=== PATIENT | male | born 1955 | race Caucasian/White ===

== ENCOUNTER 2019-12-15 16:09 | Inpatient (IN) ==
[2019-12-15] MEDS ORDERED: D5% in Water 1,000 ML IVC PRN (17:50)
[2019-12-15] MEDS ORDERED: *HR* Dextrose 50 % in Water (Vial) 50 ML VIAL IVP PRN (17:50)
[2019-12-15] MEDS ORDERED: Dextrose Gel 15 GM/37.5 ML TUBE PO PRN ×2 (17:50)
[2019-12-15 18:12] LABS: Hematocrit 28.3 % (37.5-50.1); Hemoglobin 8.7 g/dL (12.9-16.9); Mean Corpuscular HGB Conc 30.7 g/dL (31.6-35.5); Mean Corpuscular Hemoglobin 27.3 pg (28.0-33.3); Mean Corpuscular Volume 88.7 fL (83.0-100.0); Mean Platelet Volume 10.2 fL (9.4-12.4); Platelet Count 238 K/mcL (140-400); Red Blood Count 3.19 M/mcL (4.19-5.50); Red Cell Distribution Width 20.9 % (11.5-14.5)
[2019-12-15 18:29] LABS: Alanine Aminotransferase 17 Units/L (7-52); Albumin 2.5 g/dL (3.5-5.7); Albumin/Globulin Ratio 0.7 (1.1-2.2); Alkaline Phosphatase 76 Units/L (34-104); Aspartate Amino Transferase 21 Units/L (13-39); BUN/Creatinine Ratio 10 (6-26); Bilirubin,Total 0.6 mg/dL (0.3-1.0); Blood Urea Nitrogen 9 mg/dL (8-23); Calcium 8.2 mg/dL (8.6-10.3); Carbon Dioxide 28 mEq/L (23-29); Chloride 103 mEq/L (98-107); Globulin 3.7 g/dL (2.4-3.5); Glucose 165 mg/dL (70-105); Magnesium 1.8 mg/dL (1.6-2.6); Osmolality,Calculated 286 (280-300); Potassium 4.2 mEq/L (3.5-5.1); Sodium 137 mEq/L (136-145); Total Protein 6.2 g/dL (6.4-8.9); eGFR For African Americans > 60 (> 60); eGFR For Non-African Americans > 60 (> 60)
[2019-12-15] MEDS: Insulin LISPRO 300 UNITS/3 ML VIAL SQ SCH ×3 (18:37→20:28)
[2019-12-15] MEDS ORDERED: *HR* OxyCODONE Immed Rel 5 MG TABLET PO ONE (19:06)
[2019-12-15] MEDS: Lactulose Oral Soln 20 GM/30 ML UDC PO SCH (19:49)
[2019-12-15] MEDS: Insulin DETEMIR 100 UNIT/ML X5UNITS SQ SCH (20:29)
[2019-12-15] MEDS: Budesonide/Formoterol 160/4.5 1 PUFF INH IH SCH (21:16)
[2019-12-15 22:59] LABS: Estimated Average Glucose 160 mg/dl
[2019-12-16 06:58] LABS: Alanine Aminotransferase 17 Units/L (7-52); Albumin 2.5 g/dL (3.5-5.7); Albumin/Globulin Ratio 0.6 (1.1-2.2); Alkaline Phosphatase 77 Units/L (34-104); Aspartate Amino Transferase 21 Units/L (13-39); BUN/Creatinine Ratio 9 (6-26); Bilirubin,Total 0.8 mg/dL (0.3-1.0); Blood Urea Nitrogen 8 mg/dL (8-23); Calcium 8.1 mg/dL (8.6-10.3); Carbon Dioxide 27 mEq/L (23-29); Chloride 104 mEq/L (98-107); Globulin 3.9 g/dL (2.4-3.5); Glucose 121 mg/dL (70-105); Osmolality,Calculated 284 (280-300); Potassium 3.9 mEq/L (3.5-5.1); Sodium 137 mEq/L (136-145); Total Protein 6.4 g/dL (6.4-8.9); eGFR For African Americans > 60 (> 60); eGFR For Non-African Americans > 60 (> 60)
[2019-12-16] MEDS: Insulin LISPRO 300 UNITS/3 ML VIAL SQ SCH ×5 (08:47→22:07)
[2019-12-16] MEDS: lamoTRIgine 100 MG TABLET PO SCH (08:48)
[2019-12-16] MEDS: Lisinopril 20 MG TABLET PO SCH (08:48)
[2019-12-16] MEDS: Insulin DETEMIR 100 UNIT/ML X5UNITS SQ SCH ×2 (08:48→22:05)
[2019-12-16] MEDS: Cholecalciferol (D-3) 1,000 UNIT (25MCG) TABLET PO SCH (08:49)
[2019-12-16] MEDS: Lactulose Oral Soln 20 GM/30 ML UDC PO SCH ×3 (08:49→22:15)
[2019-12-16] MEDS ORDERED: Furosemide 40 MG TABLET PO SCH (09:00)
[2019-12-16] MEDS: Budesonide/Formoterol 160/4.5 1 PUFF INH IH SCH ×2 (09:20→21:02)
[2019-12-16] MEDS: *HR* OxyCODONE Immed Rel 5 MG TABLET PO PRN (15:14)
[2019-12-16] MEDS: Furosemide 40 MG TABLET PO SCH (17:05)
[2019-12-17] MEDS: Insulin LISPRO 300 UNITS/3 ML VIAL SQ SCH ×4 (09:09→21:16)
[2019-12-17] MEDS: Lisinopril 20 MG TABLET PO SCH (09:27)
[2019-12-17] MEDS: *HR* OxyCODONE Immed Rel 5 MG TABLET PO PRN ×2 (09:28→21:15)
[2019-12-17] MEDS: Cholecalciferol (D-3) 1,000 UNIT (25MCG) TABLET PO SCH (09:28)
[2019-12-17] MEDS: Furosemide 40 MG TABLET PO SCH ×2 (09:28→16:47)
[2019-12-17] MEDS: lamoTRIgine 100 MG TABLET PO SCH (09:28)
[2019-12-17] MEDS: Insulin DETEMIR 100 UNIT/ML X5UNITS SQ SCH ×2 (09:29→21:17)
[2019-12-17] MEDS: Lactulose Oral Soln 20 GM/30 ML UDC PO SCH ×3 (09:35→21:16)
[2019-12-17] MEDS: Budesonide/Formoterol 160/4.5 1 PUFF INH IH SCH ×2 (10:27→22:08)
[2019-12-18] MEDS: Insulin LISPRO 300 UNITS/3 ML VIAL SQ SCH ×4 (08:20→22:39)
[2019-12-18] MEDS: Lactulose Oral Soln 20 GM/30 ML UDC PO SCH ×3 (08:21→22:39)
[2019-12-18] MEDS: Cholecalciferol (D-3) 1,000 UNIT (25MCG) TABLET PO SCH (08:21)
[2019-12-18] MEDS: *HR* OxyCODONE Immed Rel 5 MG TABLET PO PRN ×2 (08:21→22:36)
[2019-12-18] MEDS: lamoTRIgine 100 MG TABLET PO SCH (08:23)
[2019-12-18] MEDS: Lisinopril 20 MG TABLET PO SCH (08:23)
[2019-12-18] MEDS: Furosemide 40 MG TABLET PO SCH ×2 (08:23→17:27)
[2019-12-18 08:26] LABS: Basophils % 0.3 %; Eosinophils # 0.2 K/mcL (0.0-0.6); Eosinophils % 1.7 %; Hematocrit 28.8 % (37.5-50.1); Immature Granulocytes % 0.8 % (0-4); Mean Corpuscular HGB Conc 31.3 g/dL (31.6-35.5); Mean Corpuscular Hemoglobin 27.9 pg (28.0-33.3); Mean Corpuscular Volume 89.2 fL (83.0-100.0); Monocytes # 1.3 K/mcL (0.0-1.3); Monocytes % 11.4 %; Platelet Count 257 K/mcL (140-400); Red Blood Count 3.23 M/mcL (4.19-5.50); Red Cell Distribution Width 21.2 % (11.5-14.5); Segmented Neutrophils % 68.8 %; White Blood Count 11.7 K/mcL (4.3-11.1)
[2019-12-18 08:30] LABS: Neutrophils # 8.1 K/mcL (1.6-8.9)
[2019-12-18 08:45] LABS: BUN/Creatinine Ratio 8 (6-26); Blood Urea Nitrogen 8 mg/dL (8-23); Calcium 8.2 mg/dL (8.6-10.3); Carbon Dioxide 30 mEq/L (23-29); Chloride 100 mEq/L (98-107); Glucose 151 mg/dL (70-105); Osmolality,Calculated 281 (280-300); Potassium 4.1 mEq/L (3.5-5.1); Sodium 135 mEq/L (136-145); eGFR For African Americans > 60 (> 60); eGFR For Non-African Americans > 60 (> 60)
[2019-12-18] MEDS: Insulin DETEMIR 100 UNIT/ML X5UNITS SQ SCH ×2 (08:50→22:37)
[2019-12-18] MEDS: Budesonide/Formoterol 160/4.5 1 PUFF INH IH SCH ×2 (10:15→22:25)
[2019-12-18] MEDS ORDERED: Ipratropium/Albuterol Neb 3 ML IH PRN (17:36)
[2019-12-18] MEDS ORDERED: Ipratropium/Albuterol Neb 3 ML IH ONE (17:36)
[2019-12-18 17:59] LABS: ABG Base Excess 3 mEq/L (-2 to 3); ABG HCO3 28 mEq/L (21-27); ABG Oxygen Saturation 95 % (95-98); ABG PCO2 46 mmHg (35-45); ABG PO2 76 mmHg (85-104); ABG TCO2 30 mEq/L (20-26)
[2019-12-18] MEDS ORDERED: 0.9 % Sodium Chloride 1,000 ML IV ONE (21:36)
[2019-12-18] MEDS: Doxycycline 100 MG CAPSULE PO SCH (22:36)
[2019-12-19] MEDS ORDERED: *HR* Enoxaparin 40 MG/0.4 ML SYRINGE SQ SCH (06:00)
[2019-12-19] MEDS ORDERED: 0.9 % Sodium Chloride 1,000 ML IV ONE (07:22)
[2019-12-19 07:47] LABS: Basophils % 0.3 %; Eosinophils # 0.2 K/mcL (0.0-0.6); Eosinophils % 1.4 %; Hemoglobin 8.7 g/dL (12.9-16.9); Immature Granulocytes % 0.5 % (0-4); Lymphocytes # 2.3 K/mcL (0.6-4.6); Lymphocytes % 19.4 %; Mean Corpuscular HGB Conc 31.1 g/dL (31.6-35.5); Mean Corpuscular Hemoglobin 27.9 pg (28.0-33.3); Mean Corpuscular Volume 89.7 fL (83.0-100.0); Mean Platelet Volume 10.1 fL (9.4-12.4); Monocytes # 1.4 K/mcL (0.0-1.3); Monocytes % 11.5 %; Platelet Count 244 K/mcL (140-400); Red Blood Count 3.12 M/mcL (4.19-5.50); Red Cell Distribution Width 21.2 % (11.5-14.5); Segmented Neutrophils % 66.9 %
[2019-12-19] MEDS ORDERED: ceFAZolin 2,000 MG in 0.9 % Sodium Chloride 100 ML IVPB SCH ×2 (08:00→09:00)
[2019-12-19 08:01] VITALS: BP 100/75
[2019-12-19 08:02] LABS: BUN/Creatinine Ratio 10 (6-26); Blood Urea Nitrogen 11 mg/dL (8-23); Calcium 8.2 mg/dL (8.6-10.3); Carbon Dioxide 30 mEq/L (23-29); Chloride 100 mEq/L (98-107); Glucose 138 mg/dL (70-105); Osmolality,Calculated 282 (280-300); Potassium 4.1 mEq/L (3.5-5.1); Sodium 135 mEq/L (136-145); eGFR For African Americans > 60 (> 60); eGFR For Non-African Americans > 60 (> 60)
[2019-12-19] MEDS: Insulin LISPRO 300 UNITS/3 ML VIAL SQ SCH ×3 (09:07→16:49)
[2019-12-19] MEDS: Insulin DETEMIR 100 UNIT/ML X5UNITS SQ SCH (09:08)
[2019-12-19] MEDS: Lactulose Oral Soln 20 GM/30 ML UDC PO SCH ×2 (09:08→13:57)
[2019-12-19] MEDS: Lisinopril 20 MG TABLET PO SCH (09:09)
[2019-12-19] MEDS: lamoTRIgine 100 MG TABLET PO SCH (09:09)
[2019-12-19] MEDS: Doxycycline 100 MG CAPSULE PO SCH (09:09)
[2019-12-19] MEDS: Furosemide 40 MG TABLET PO SCH ×2 (09:09→16:49)
[2019-12-19] MEDS: Cholecalciferol (D-3) 1,000 UNIT (25MCG) TABLET PO SCH (09:09)
[2019-12-19] MEDS ORDERED: Morphine Sulfate 2 MG/ML SYRINGE IVP PRN (09:47)
[2019-12-19] MEDS: Budesonide/Formoterol 160/4.5 1 PUFF INH IH SCH (10:55)
[2019-12-19] MEDS ORDERED: Piperacillin/Tazobactam 3.375 GM in 0.9 % Sodium Chloride Mini Bag 100 ML IVPB SCH ×2 (11:00→13:00)
[2019-12-19] MEDS: *HR* OxyCODONE Immed Rel 5 MG TABLET PO PRN (17:27)
[2019-12-20 09:16] LABS: Acinetobacter baumannii by PCR Not Detected (Not Detect); Candida albicans by PCR Not Detected (Not Detect); Candida glabrata by PCR Not Detected (Not Detect); Candida krusei by PCR Not Detected (Not Detect); Candida parapsilosis by PCR Not Detected (Not Detect); Candida tropicalis by PCR Not Detected (Not Detect); Enterobacter cloacae Cmplx PCR Not Detected (Not Detect); Enterobacteriaceae by PCR Not Detected (Not Detect); Enterococcus by PCR Not Detected (Not Detect); Escherichia coli by PCR Not Detected (Not Detect); Klebsiella oxytoca by PCR Not Detected (Not Detect); Klebsiella pneumoniae by PCR Not Detected (Not Detect); Proteus by PCR Not Detected (Not Detect); Pseudomonas aeruginosa by PCR Not Detected (Not Detect); Serratia marcescens by PCR Not Detected (Not Detect); Staphylococcus aureus by PCR DETECTED (Not Detect); Streptococcus agalactiae(B)PCR Not Detected (Not Detect); Streptococcus by PCR Not Detected (Not Detect); Streptococcus pneumoniae PCR Not Detected (Not Detect); Streptococcus pyogenes (A) PCR Not Detected (Not Detect); blaKPC Carbapenem-Resist Gene Not Detected (Not Detect); mecA Methicillin-Resist Gene Not Detected (Not Detect); vanA/B Vancomycin-Resist Genes Not Detected (Not Detect)
== END 2019-12-19 18:11 | disposition short-term general hospital (02) | DRG 549 ==
LOC: INPPIK 17:42
PROVIDERS: ADMIT Family Medicine; ATTEND Family Medicine

== ENCOUNTER 2019-12-24 13:59 | Inpatient (IN) ==
[2019-12-24] MEDS ORDERED: NON-FORMULARY MEDICATION 1 EACH EACH (Cefazolin Sodium In 0.9 % Nacl [Cefazolin 2 G/100 Ml IV SCH (14:15)
[2019-12-24] MEDS ORDERED: D5% in Water 1,000 ML IVC PRN (14:20)
[2019-12-24] MEDS ORDERED: Dextrose Gel 15 GM/37.5 ML TUBE PO PRN ×2 (14:20)
[2019-12-24] MEDS ORDERED: *HR* Dextrose 50 % in Water (Vial) 50 ML VIAL IVP PRN (14:20)
[2019-12-24] MEDS: Ascorbic Acid 500 MG TABLET PO SCH (16:39)
[2019-12-24] MEDS: Furosemide 40 MG TABLET PO SCH (16:40)
[2019-12-24] MEDS: ceFAZolin 2,000 MG in 0.9 % Sodium Chloride 100 ML IVPB SCH ×2 (16:40→23:48)
[2019-12-24] MEDS: Lactulose Oral Soln 20 GM/30 ML UDC PO SCH ×2 (16:40→19:54)
[2019-12-24] MEDS: Insulin LISPRO 300 UNITS/3 ML VIAL SQ SCH ×2 (16:41→19:55)
[2019-12-24] MEDS: Insulin DETEMIR 100 UNIT/ML X5UNITS SQ SCH (19:55)
[2019-12-24] MEDS: *HR* OxyCODONE Immed Rel 5 MG TABLET PO PRN (20:11)
[2019-12-24] MEDS: Budesonide/Formoterol 160/4.5 1 PUFF INH IH SCH (22:56)
[2019-12-24] MEDS: Famotidine 20 MG TABLET PO SCH (23:20)
[2019-12-25 07:23] LABS: Basophils % 0.1 %; Eosinophils # 0.2 K/mcL (0.0-0.6); Eosinophils % 2.3 %; Hematocrit 23.8 % (37.5-50.1); Hemoglobin 7.5 g/dL (12.9-16.9); Immature Granulocytes % 0.7 % (0-4); Lymphocytes # 2.8 K/mcL (0.6-4.6); Lymphocytes % 33.7 %; Mean Corpuscular HGB Conc 31.5 g/dL (31.6-35.5); Mean Corpuscular Hemoglobin 29.2 pg (28.0-33.3); Mean Corpuscular Volume 92.6 fL (83.0-100.0); Mean Platelet Volume 11.8 fL (9.4-12.4); Monocytes % 12.4 %; Neutrophils # 4.3 K/mcL (1.6-8.9); Platelet Count 151 K/mcL (140-400); Red Blood Count 2.57 M/mcL (4.19-5.50); Red Cell Distribution Width 21.6 % (11.5-14.5); Segmented Neutrophils % 50.8 %; White Blood Count 8.4 K/mcL (4.3-11.1)
[2019-12-25 07:32] LABS: BUN/Creatinine Ratio 9 (6-26); Blood Urea Nitrogen 9 mg/dL (8-23); Calcium 8.2 mg/dL (8.6-10.3); Carbon Dioxide 30 mEq/L (23-29); Chloride 104 mEq/L (98-107); Glucose 100 mg/dL (70-105); Osmolality,Calculated 285 (280-300); Sodium 138 mEq/L (136-145); eGFR For African Americans > 60 (> 60); eGFR For Non-African Americans > 60 (> 60)
[2019-12-25] MEDS ORDERED: Nicotine 14 MG PATCH.TD24 TD SCH (09:00)
[2019-12-25] MEDS: Lisinopril 20 MG TABLET PO SCH (09:34)
[2019-12-25] MEDS: Ascorbic Acid 500 MG TABLET PO SCH ×2 (09:36→16:48)
[2019-12-25] MEDS: Budesonide/Formoterol 160/4.5 1 PUFF INH IH SCH ×2 (09:36→22:06)
[2019-12-25] MEDS: Cholecalciferol (D-3) 1,000 UNIT (25MCG) TABLET PO SCH (09:36)
[2019-12-25] MEDS: Aspirin Enteric Coated 81 MG Tablet PO SCH (09:36)
[2019-12-25] MEDS: lamoTRIgine 100 MG TABLET PO SCH (09:36)
[2019-12-25] MEDS: Furosemide 40 MG TABLET PO SCH ×2 (09:36→16:50)
[2019-12-25] MEDS: Insulin DETEMIR 100 UNIT/ML X5UNITS SQ SCH ×2 (09:37→19:52)
[2019-12-25] MEDS: Insulin LISPRO 300 UNITS/3 ML VIAL SQ SCH ×4 (09:37→19:52)
[2019-12-25] MEDS: Famotidine 20 MG TABLET PO SCH ×2 (09:37→19:52)
[2019-12-25] MEDS: Lactulose Oral Soln 20 GM/30 ML UDC PO SCH ×3 (09:40→19:52)
[2019-12-25] MEDS: ceFAZolin 2,000 MG in 0.9 % Sodium Chloride 100 ML IVPB SCH ×2 (09:45→16:48)
[2019-12-25] MEDS: Multivit/Ca/Min/Fe/FA 1 TAB TABLET PO SCH (09:52)
[2019-12-25] MEDS: *HR* OxyCODONE Immed Rel 5 MG TABLET PO PRN (12:27)
[2019-12-25] MEDS: *HR* Heparin 5,000 UNIT/ML VIAL SQ SCH (22:30)
[2019-12-26] MEDS: ceFAZolin 2,000 MG in 0.9 % Sodium Chloride 100 ML IVPB SCH ×3 (01:20→16:52)
[2019-12-26] MEDS: *HR* Heparin 5,000 UNIT/ML VIAL SQ SCH ×3 (06:27→21:41)
[2019-12-26 07:15] LABS: Hematocrit 24.6 % (37.5-50.1); Hemoglobin 7.5 g/dL (12.9-16.9); Mean Corpuscular HGB Conc 30.5 g/dL (31.6-35.5); Mean Corpuscular Hemoglobin 28.2 pg (28.0-33.3); Mean Corpuscular Volume 92.5 fL (83.0-100.0); Mean Platelet Volume 10.3 fL (9.4-12.4); Platelet Count 175 K/mcL (140-400); Red Blood Count 2.66 M/mcL (4.19-5.50); Red Cell Distribution Width 21.8 % (11.5-14.5)
[2019-12-26] MEDS: Lactulose Oral Soln 20 GM/30 ML UDC PO SCH ×2 (09:13→14:48)
[2019-12-26] MEDS: Famotidine 20 MG TABLET PO SCH ×2 (09:13→21:41)
[2019-12-26] MEDS: Nicotine 21 MG PATCH.TD24 TD SCH (09:13)
[2019-12-26] MEDS: Multivit/Ca/Min/Fe/FA 1 TAB TABLET PO SCH (09:13)
[2019-12-26] MEDS: Ascorbic Acid 500 MG TABLET PO SCH ×2 (09:14→15:51)
[2019-12-26] MEDS: Cholecalciferol (D-3) 1,000 UNIT (25MCG) TABLET PO SCH (09:14)
[2019-12-26] MEDS: Aspirin Enteric Coated 81 MG Tablet PO SCH (09:14)
[2019-12-26] MEDS: Lisinopril 20 MG TABLET PO SCH (09:17)
[2019-12-26] MEDS: Insulin LISPRO 300 UNITS/3 ML VIAL SQ SCH ×4 (09:17→21:42)
[2019-12-26] MEDS: Furosemide 40 MG TABLET PO SCH ×2 (09:17→15:51)
[2019-12-26] MEDS: Budesonide/Formoterol 160/4.5 1 PUFF INH IH SCH ×2 (10:25→22:08)
[2019-12-26] MEDS: lamoTRIgine 100 MG TABLET PO SCH (10:42)
[2019-12-26] MEDS: Insulin DETEMIR 100 UNIT/ML X5UNITS SQ SCH ×2 (11:23→21:41)
[2019-12-26] MEDS ORDERED: Lactulose Oral Soln 20 GM/30 ML UDC PO PRN (15:19)
[2019-12-27] MEDS: *HR* OxyCODONE Immed Rel 5 MG TABLET PO PRN ×3 (00:48→17:21)
[2019-12-27] MEDS: ceFAZolin 2,000 MG in 0.9 % Sodium Chloride 100 ML IVPB SCH ×4 (00:49→23:30)
[2019-12-27] MEDS: Famotidine 20 MG TABLET PO SCH ×2 (08:24→23:30)
[2019-12-27] MEDS: Multivit/Ca/Min/Fe/FA 1 TAB TABLET PO SCH (08:24)
[2019-12-27] MEDS: Ascorbic Acid 500 MG TABLET PO SCH ×2 (08:24→16:27)
[2019-12-27] MEDS: lamoTRIgine 100 MG TABLET PO SCH (08:25)
[2019-12-27] MEDS: Lisinopril 20 MG TABLET PO SCH (08:25)
[2019-12-27] MEDS: Aspirin Enteric Coated 81 MG Tablet PO SCH (08:25)
[2019-12-27] MEDS: Furosemide 40 MG TABLET PO SCH ×3 (08:26→18:12)
[2019-12-27] MEDS: Nicotine 21 MG PATCH.TD24 TD SCH (08:26)
[2019-12-27] MEDS: Cholecalciferol (D-3) 1,000 UNIT (25MCG) TABLET PO SCH (08:26)
[2019-12-27] MEDS: Insulin DETEMIR 100 UNIT/ML X5UNITS SQ SCH ×2 (08:30→23:39)
[2019-12-27] MEDS: Budesonide/Formoterol 160/4.5 1 PUFF INH IH SCH ×2 (10:37→22:36)
[2019-12-27] MEDS: Insulin LISPRO 300 UNITS/3 ML VIAL SQ SCH ×4 (11:47→23:39)
[2019-12-27] MEDS: *HR* Heparin 5,000 UNIT/ML VIAL SQ SCH ×3 (12:20→23:30)
[2019-12-28] MEDS: *HR* Heparin 5,000 UNIT/ML VIAL SQ SCH ×2 (05:06→13:33)
[2019-12-28] MEDS: ceFAZolin 2,000 MG in 0.9 % Sodium Chloride 100 ML IVPB SCH ×2 (08:12→16:52)
[2019-12-28] MEDS: Insulin DETEMIR 100 UNIT/ML X5UNITS SQ SCH ×2 (08:14→19:51)
[2019-12-28] MEDS: Famotidine 20 MG TABLET PO SCH ×2 (08:16→19:51)
[2019-12-28] MEDS: Cholecalciferol (D-3) 1,000 UNIT (25MCG) TABLET PO SCH (08:16)
[2019-12-28] MEDS: lamoTRIgine 100 MG TABLET PO SCH (08:16)
[2019-12-28] MEDS: Aspirin Enteric Coated 81 MG Tablet PO SCH (08:17)
[2019-12-28] MEDS: Ascorbic Acid 500 MG TABLET PO SCH ×2 (08:17→16:52)
[2019-12-28] MEDS: Multivit/Ca/Min/Fe/FA 1 TAB TABLET PO SCH (08:17)
[2019-12-28] MEDS: Insulin LISPRO 300 UNITS/3 ML VIAL SQ SCH ×4 (08:17→19:46)
[2019-12-28] MEDS: Lisinopril 20 MG TABLET PO SCH (08:17)
[2019-12-28] MEDS: Nicotine 21 MG PATCH.TD24 TD SCH (08:26)
[2019-12-28] MEDS: Furosemide 40 MG TABLET PO SCH ×2 (08:28→16:52)
[2019-12-28] MEDS: Budesonide/Formoterol 160/4.5 1 PUFF INH IH SCH ×2 (11:13→21:46)
[2019-12-28] MEDS: *HR* OxyCODONE Immed Rel 5 MG TABLET PO PRN (17:03)
[2019-12-29] MEDS: ceFAZolin 2,000 MG in 0.9 % Sodium Chloride 100 ML IVPB SCH ×3 (00:03→16:39)
[2019-12-29] MEDS: *HR* Heparin 5,000 UNIT/ML VIAL SQ SCH ×4 (00:03→23:10)
[2019-12-29] MEDS: Aspirin Enteric Coated 81 MG Tablet PO SCH (08:34)
[2019-12-29] MEDS: Nicotine 21 MG PATCH.TD24 TD SCH (08:34)
[2019-12-29] MEDS: Cholecalciferol (D-3) 1,000 UNIT (25MCG) TABLET PO SCH (08:35)
[2019-12-29] MEDS: Multivit/Ca/Min/Fe/FA 1 TAB TABLET PO SCH (08:35)
[2019-12-29] MEDS: lamoTRIgine 100 MG TABLET PO SCH (08:35)
[2019-12-29] MEDS: Ascorbic Acid 500 MG TABLET PO SCH ×2 (08:35→16:39)
[2019-12-29] MEDS: *HR* OxyCODONE Immed Rel 5 MG TABLET PO PRN ×2 (08:35→20:57)
[2019-12-29] MEDS: Famotidine 20 MG TABLET PO SCH ×2 (08:35→20:52)
[2019-12-29] MEDS: Lisinopril 20 MG TABLET PO SCH (08:36)
[2019-12-29] MEDS: Insulin DETEMIR 100 UNIT/ML X5UNITS SQ SCH ×2 (08:37→20:53)
[2019-12-29] MEDS: Furosemide 40 MG TABLET PO SCH ×2 (08:38→16:59)
[2019-12-29] MEDS: Insulin LISPRO 300 UNITS/3 ML VIAL SQ SCH ×5 (09:09→20:52)
[2019-12-29] MEDS: Budesonide/Formoterol 160/4.5 1 PUFF INH IH SCH ×2 (09:15→22:47)
[2019-12-29] MEDS ORDERED: Lactulose Oral Soln 20 GM/30 ML UDC PO SCH (16:15)
[2019-12-29 16:53] LABS: Hematocrit 27.5 % (37.5-50.1); Hemoglobin 8.4 g/dL (12.9-16.9); Mean Corpuscular HGB Conc 30.5 g/dL (31.6-35.5); Mean Corpuscular Volume 94.8 fL (83.0-100.0); Mean Platelet Volume 10.5 fL (9.4-12.4); Platelet Count 212 K/mcL (140-400); Red Cell Distribution Width 23.1 % (11.5-14.5); White Blood Count 8.9 K/mcL (4.3-11.1)
[2019-12-29] MEDS ORDERED: Lactulose Oral Soln 20 GM/30 ML UDC PO PRN (16:55)
[2019-12-30] MEDS: ceFAZolin 2,000 MG in 0.9 % Sodium Chloride 100 ML IVPB SCH ×3 (00:12→15:34)
[2019-12-30] MEDS: *HR* Heparin 5,000 UNIT/ML VIAL SQ SCH ×3 (06:34→23:01)
[2019-12-30] MEDS: Famotidine 20 MG TABLET PO SCH ×2 (08:24→20:56)
[2019-12-30] MEDS: Nicotine 21 MG PATCH.TD24 TD SCH (08:24)
[2019-12-30] MEDS: Multivit/Ca/Min/Fe/FA 1 TAB TABLET PO SCH (08:25)
[2019-12-30] MEDS: lamoTRIgine 100 MG TABLET PO SCH (08:25)
[2019-12-30] MEDS: Ascorbic Acid 500 MG TABLET PO SCH ×2 (08:25→15:33)
[2019-12-30] MEDS: Cholecalciferol (D-3) 1,000 UNIT (25MCG) TABLET PO SCH (08:25)
[2019-12-30] MEDS: Aspirin Enteric Coated 81 MG Tablet PO SCH (08:25)
[2019-12-30] MEDS: Insulin LISPRO 300 UNITS/3 ML VIAL SQ SCH ×4 (08:26→20:58)
[2019-12-30] MEDS: Lisinopril 20 MG TABLET PO SCH (08:26)
[2019-12-30] MEDS: Furosemide 40 MG TABLET PO SCH ×2 (08:26→15:40)
[2019-12-30] MEDS: Insulin DETEMIR 100 UNIT/ML X5UNITS SQ SCH ×2 (08:39→20:58)
[2019-12-30] MEDS: Budesonide/Formoterol 160/4.5 1 PUFF INH IH SCH ×2 (09:37→21:48)
[2019-12-30] MEDS: *HR* OxyCODONE Immed Rel 5 MG TABLET PO PRN (13:46)
[2019-12-31] MEDS: ceFAZolin 2,000 MG in 0.9 % Sodium Chloride 100 ML IVPB SCH ×3 (00:12→16:40)
[2019-12-31] MEDS: *HR* Heparin 5,000 UNIT/ML VIAL SQ SCH ×3 (06:30→21:02)
[2019-12-31] MEDS: Insulin LISPRO 300 UNITS/3 ML VIAL SQ SCH ×4 (09:24→21:11)
[2019-12-31] MEDS: Nicotine 21 MG PATCH.TD24 TD SCH (09:25)
[2019-12-31] MEDS: Famotidine 20 MG TABLET PO SCH ×2 (09:25→21:02)
[2019-12-31] MEDS: Aspirin Enteric Coated 81 MG Tablet PO SCH (09:25)
[2019-12-31] MEDS: Ascorbic Acid 500 MG TABLET PO SCH ×2 (09:25→16:42)
[2019-12-31] MEDS: lamoTRIgine 100 MG TABLET PO SCH (09:25)
[2019-12-31] MEDS: Multivit/Ca/Min/Fe/FA 1 TAB TABLET PO SCH (09:26)
[2019-12-31] MEDS: Cholecalciferol (D-3) 1,000 UNIT (25MCG) TABLET PO SCH (09:26)
[2019-12-31] MEDS: Furosemide 40 MG TABLET PO SCH ×2 (09:26→16:42)
[2019-12-31] MEDS: Lisinopril 20 MG TABLET PO SCH (09:27)
[2019-12-31] MEDS: Budesonide/Formoterol 160/4.5 1 PUFF INH IH SCH ×2 (10:59→22:35)
[2019-12-31] MEDS: Insulin DETEMIR 100 UNIT/ML X5UNITS SQ SCH ×2 (12:35→21:10)
[2019-12-31] MEDS: *HR* OxyCODONE Immed Rel 5 MG TABLET PO PRN (21:09)
[2020-01-01] MEDS: ceFAZolin 2,000 MG in 0.9 % Sodium Chloride 100 ML IVPB SCH ×3 (00:39→17:06)
[2020-01-01] MEDS: *HR* Heparin 5,000 UNIT/ML VIAL SQ SCH ×3 (05:58→20:29)
[2020-01-01] MEDS: Insulin LISPRO 300 UNITS/3 ML VIAL SQ SCH ×4 (07:52→20:29)
[2020-01-01] MEDS: lamoTRIgine 100 MG TABLET PO SCH (08:34)
[2020-01-01] MEDS: Famotidine 20 MG TABLET PO SCH ×2 (08:34→20:28)
[2020-01-01] MEDS: Ascorbic Acid 500 MG TABLET PO SCH ×2 (08:34→17:07)
[2020-01-01] MEDS: Aspirin Enteric Coated 81 MG Tablet PO SCH (08:34)
[2020-01-01] MEDS: Furosemide 40 MG TABLET PO SCH ×2 (08:34→17:07)
[2020-01-01] MEDS: Lisinopril 20 MG TABLET PO SCH (08:35)
[2020-01-01] MEDS: Cholecalciferol (D-3) 1,000 UNIT (25MCG) TABLET PO SCH (08:35)
[2020-01-01] MEDS: Multivit/Ca/Min/Fe/FA 1 TAB TABLET PO SCH (08:35)
[2020-01-01] MEDS: Nicotine 21 MG PATCH.TD24 TD SCH ×2 (08:36→08:41)
[2020-01-01] MEDS: Insulin DETEMIR 100 UNIT/ML X5UNITS SQ SCH ×2 (08:43→20:29)
[2020-01-01] MEDS: *HR* OxyCODONE Immed Rel 5 MG TABLET PO PRN ×2 (09:22→20:28)
[2020-01-01 09:40] LABS: Hematocrit 27.6 % (37.5-50.1); Hemoglobin 8.5 g/dL (12.9-16.9); Mean Corpuscular HGB Conc 30.8 g/dL (31.6-35.5); Mean Corpuscular Hemoglobin 29.1 pg (28.0-33.3); Mean Corpuscular Volume 94.5 fL (83.0-100.0); Mean Platelet Volume 10.6 fL (9.4-12.4); Platelet Count 188 K/mcL (140-400); Red Blood Count 2.92 M/mcL (4.19-5.50); Red Cell Distribution Width 23.3 % (11.5-14.5); White Blood Count 8.1 K/mcL (4.3-11.1)
[2020-01-01 09:55] LABS: BUN/Creatinine Ratio 8 (6-26); Blood Urea Nitrogen 9 mg/dL (8-23); Calcium 8.2 mg/dL (8.6-10.3); Carbon Dioxide 30 mEq/L (23-29); Chloride 103 mEq/L (98-107); Glucose 90 mg/dL (70-105); Osmolality,Calculated 286 (280-300); Potassium 3.9 mEq/L (3.5-5.1); Sodium 139 mEq/L (136-145); eGFR For African Americans > 60 (> 60); eGFR For Non-African Americans > 60 (> 60)
[2020-01-01] MEDS: Budesonide/Formoterol 160/4.5 1 PUFF INH IH SCH ×2 (10:29→21:34)
[2020-01-02] MEDS: ceFAZolin 2,000 MG in 0.9 % Sodium Chloride 100 ML IVPB SCH ×3 (00:29→14:16)
[2020-01-02] MEDS ORDERED: *HR* LORazepam 2 MG/ML VIAL ONE (03:11)
[2020-01-02] MEDS: *HR* LORazepam 2 MG/ML VIAL IM PRN (03:15)
[2020-01-02] MEDS: *HR* LORazepam 2 MG/ML VIAL IM STA ×2 (03:15→03:34)
[2020-01-02] MEDS: *HR* Heparin 5,000 UNIT/ML VIAL SQ SCH ×3 (05:13→22:08)
[2020-01-02] MEDS: Budesonide/Formoterol 160/4.5 1 PUFF INH IH SCH ×2 (10:44→21:37)
[2020-01-02] MEDS: Insulin LISPRO 300 UNITS/3 ML VIAL SQ SCH ×4 (12:04→22:03)
[2020-01-02] MEDS: lamoTRIgine 100 MG TABLET PO SCH (12:05)
[2020-01-02] MEDS: Aspirin Enteric Coated 81 MG Tablet PO SCH (12:05)
[2020-01-02] MEDS: Ascorbic Acid 500 MG TABLET PO SCH ×2 (12:05→17:59)
[2020-01-02] MEDS: Furosemide 40 MG TABLET PO SCH ×2 (12:05→18:39)
[2020-01-02] MEDS: Insulin DETEMIR 100 UNIT/ML X5UNITS SQ SCH ×2 (12:05→22:04)
[2020-01-02] MEDS: Cholecalciferol (D-3) 1,000 UNIT (25MCG) TABLET PO SCH (12:06)
[2020-01-02] MEDS: Multivit/Ca/Min/Fe/FA 1 TAB TABLET PO SCH (12:06)
[2020-01-02] MEDS: Lisinopril 20 MG TABLET PO SCH (12:06)
[2020-01-02] MEDS: Famotidine 20 MG TABLET PO SCH ×2 (12:06→22:08)
[2020-01-02] MEDS ORDERED: Lactulose Oral Soln 20 GM/30 ML UDC PO PRN (12:07)
[2020-01-02] MEDS: Nicotine 21 MG PATCH.TD24 TD SCH (12:09)
[2020-01-02 14:21] LABS: Alanine Aminotransferase 3 Units/L (7-52); Albumin 2.8 g/dL (3.5-5.7); Albumin/Globulin Ratio 0.8 (1.1-2.2); Alkaline Phosphatase 78 Units/L (34-104); Aspartate Amino Transferase 22 Units/L (13-39); BUN/Creatinine Ratio 9 (6-26); Bilirubin,Total 0.7 mg/dL (0.3-1.0); Blood Urea Nitrogen 10 mg/dL (8-23); Calcium 8.6 mg/dL (8.6-10.3); Carbon Dioxide 31 mEq/L (23-29); Chloride 102 mEq/L (98-107); Globulin 3.6 g/dL (2.4-3.5); Glucose 72 mg/dL (70-105); Osmolality,Calculated 290 (280-300); Potassium 4.2 mEq/L (3.5-5.1); Sodium 141 mEq/L (136-145); Total Protein 6.4 g/dL (6.4-8.9); eGFR For African Americans > 60 (> 60); eGFR For Non-African Americans > 60 (> 60)
[2020-01-02] MEDS: Lactulose Oral Soln 20 GM/30 ML UDC PO SCH ×3 (16:03→22:09)
[2020-01-03] MEDS: ceFAZolin 2,000 MG in 0.9 % Sodium Chloride 100 ML IVPB SCH ×4 (00:12→23:55)
[2020-01-03] MEDS: *HR* Heparin 5,000 UNIT/ML VIAL SQ SCH ×3 (05:41→21:17)
[2020-01-03] MEDS: Insulin LISPRO 300 UNITS/3 ML VIAL SQ SCH ×4 (09:04→23:42)
[2020-01-03] MEDS: Ascorbic Acid 500 MG TABLET PO SCH ×2 (09:05→16:58)
[2020-01-03] MEDS: Insulin DETEMIR 100 UNIT/ML X5UNITS SQ SCH ×2 (09:05→21:18)
[2020-01-03] MEDS: *HR* OxyCODONE Immed Rel 5 MG TABLET PO PRN ×2 (09:06→16:57)
[2020-01-03] MEDS: Aspirin Enteric Coated 81 MG Tablet PO SCH (09:06)
[2020-01-03] MEDS: Lisinopril 20 MG TABLET PO SCH (09:06)
[2020-01-03] MEDS: Cholecalciferol (D-3) 1,000 UNIT (25MCG) TABLET PO SCH (09:07)
[2020-01-03] MEDS: Multivit/Ca/Min/Fe/FA 1 TAB TABLET PO SCH (09:07)
[2020-01-03] MEDS: lamoTRIgine 100 MG TABLET PO SCH (09:07)
[2020-01-03] MEDS: Famotidine 20 MG TABLET PO SCH ×2 (09:08→21:16)
[2020-01-03] MEDS: Nicotine 21 MG PATCH.TD24 TD SCH (09:08)
[2020-01-03] MEDS: Furosemide 40 MG TABLET PO SCH ×2 (09:18→20:55)
[2020-01-03] MEDS: Lactulose Oral Soln 20 GM/30 ML UDC PO SCH ×3 (09:19→21:19)
[2020-01-03] MEDS: Budesonide/Formoterol 160/4.5 1 PUFF INH IH SCH ×2 (10:00→20:56)
[2020-01-04] MEDS: *HR* Heparin 5,000 UNIT/ML VIAL SQ SCH ×3 (05:12→21:46)
[2020-01-04 06:14] LABS: Hematocrit 28.4 % (37.5-50.1); Hemoglobin 8.7 g/dL (12.9-16.9); Mean Corpuscular HGB Conc 30.6 g/dL (31.6-35.5); Mean Corpuscular Hemoglobin 29.7 pg (28.0-33.3); Mean Corpuscular Volume 96.9 fL (83.0-100.0); Mean Platelet Volume 10.4 fL (9.4-12.4); Platelet Count 175 K/mcL (140-400); Red Blood Count 2.93 M/mcL (4.19-5.50); Red Cell Distribution Width 23.7 % (11.5-14.5)
[2020-01-04 06:40] LABS: BUN/Creatinine Ratio 9 (6-26); Blood Urea Nitrogen 9 mg/dL (8-23); Calcium 8.3 mg/dL (8.6-10.3); Carbon Dioxide 31 mEq/L (23-29); Chloride 104 mEq/L (98-107); Glucose 81 mg/dL (70-105); Osmolality,Calculated 286 (280-300); Potassium 4.1 mEq/L (3.5-5.1); Sodium 139 mEq/L (136-145); eGFR For African Americans > 60 (> 60); eGFR For Non-African Americans > 60 (> 60)
[2020-01-04] MEDS: Insulin LISPRO 300 UNITS/3 ML VIAL SQ SCH ×4 (08:06→21:45)
[2020-01-04] MEDS: Budesonide/Formoterol 160/4.5 1 PUFF INH IH SCH ×2 (09:05→22:21)
[2020-01-04] MEDS: ceFAZolin 2,000 MG in 0.9 % Sodium Chloride 100 ML IVPB SCH ×2 (09:36→16:47)
[2020-01-04] MEDS: Ascorbic Acid 500 MG TABLET PO SCH ×2 (09:37→16:47)
[2020-01-04] MEDS: Aspirin Enteric Coated 81 MG Tablet PO SCH (09:37)
[2020-01-04] MEDS: Nicotine 21 MG PATCH.TD24 TD SCH (09:37)
[2020-01-04] MEDS: lamoTRIgine 100 MG TABLET PO SCH (09:38)
[2020-01-04] MEDS: Lactulose Oral Soln 20 GM/30 ML UDC PO SCH ×3 (09:38→21:45)
[2020-01-04] MEDS: Cholecalciferol (D-3) 1,000 UNIT (25MCG) TABLET PO SCH (09:38)
[2020-01-04] MEDS: Famotidine 20 MG TABLET PO SCH ×2 (09:38→21:42)
[2020-01-04] MEDS: Furosemide 40 MG TABLET PO SCH ×2 (09:38→16:47)
[2020-01-04] MEDS: Multivit/Ca/Min/Fe/FA 1 TAB TABLET PO SCH (09:38)
[2020-01-04] MEDS: Lisinopril 20 MG TABLET PO SCH (09:39)
[2020-01-04] MEDS: Insulin DETEMIR 100 UNIT/ML X5UNITS SQ SCH ×2 (09:39→21:45)
[2020-01-04] MEDS: *HR* OxyCODONE Immed Rel 5 MG TABLET PO PRN (18:57)
[2020-01-05] MEDS: ceFAZolin 2,000 MG in 0.9 % Sodium Chloride 100 ML IVPB SCH ×3 (00:22→16:21)
[2020-01-05] MEDS: *HR* Heparin 5,000 UNIT/ML VIAL SQ SCH ×3 (06:29→20:16)
[2020-01-05] MEDS: Insulin LISPRO 300 UNITS/3 ML VIAL SQ SCH ×4 (07:44→20:09)
[2020-01-05] MEDS: lamoTRIgine 100 MG TABLET PO SCH (08:52)
[2020-01-05] MEDS: Ascorbic Acid 500 MG TABLET PO SCH ×2 (08:53→17:28)
[2020-01-05] MEDS: Nicotine 21 MG PATCH.TD24 TD SCH (08:53)
[2020-01-05] MEDS: Cholecalciferol (D-3) 1,000 UNIT (25MCG) TABLET PO SCH (08:53)
[2020-01-05] MEDS: Aspirin Enteric Coated 81 MG Tablet PO SCH (08:53)
[2020-01-05] MEDS: Multivit/Ca/Min/Fe/FA 1 TAB TABLET PO SCH (08:53)
[2020-01-05] MEDS: Famotidine 20 MG TABLET PO SCH ×2 (08:54→20:16)
[2020-01-05] MEDS: Lisinopril 20 MG TABLET PO SCH (08:54)
[2020-01-05] MEDS: Lactulose Oral Soln 20 GM/30 ML UDC PO SCH ×3 (08:54→20:16)
[2020-01-05] MEDS: Furosemide 40 MG TABLET PO SCH ×2 (08:54→17:29)
[2020-01-05] MEDS: Insulin DETEMIR 100 UNIT/ML X5UNITS SQ SCH ×2 (09:01→20:16)
[2020-01-05] MEDS: Budesonide/Formoterol 160/4.5 1 PUFF INH IH SCH ×2 (10:41→22:20)
[2020-01-06] MEDS: ceFAZolin 2,000 MG in 0.9 % Sodium Chloride 100 ML IVPB SCH ×3 (00:19→16:42)
[2020-01-06] MEDS: *HR* Heparin 5,000 UNIT/ML VIAL SQ SCH ×3 (06:28→20:07)
[2020-01-06] MEDS: Insulin LISPRO 300 UNITS/3 ML VIAL SQ SCH ×4 (07:39→20:08)
[2020-01-06] MEDS: Nicotine 21 MG PATCH.TD24 TD SCH (08:49)
[2020-01-06] MEDS: Aspirin Enteric Coated 81 MG Tablet PO SCH (08:50)
[2020-01-06] MEDS: lamoTRIgine 100 MG TABLET PO SCH (08:50)
[2020-01-06] MEDS: Lisinopril 20 MG TABLET PO SCH (08:51)
[2020-01-06] MEDS: Famotidine 20 MG TABLET PO SCH ×2 (08:51→20:07)
[2020-01-06] MEDS: Cholecalciferol (D-3) 1,000 UNIT (25MCG) TABLET PO SCH (08:52)
[2020-01-06] MEDS: Ascorbic Acid 500 MG TABLET PO SCH ×2 (08:52→16:42)
[2020-01-06] MEDS: Furosemide 40 MG TABLET PO SCH ×2 (08:52→16:42)
[2020-01-06] MEDS: Multivit/Ca/Min/Fe/FA 1 TAB TABLET PO SCH (08:52)
[2020-01-06] MEDS: Lactulose Oral Soln 20 GM/30 ML UDC PO SCH ×3 (08:53→20:07)
[2020-01-06] MEDS: Insulin DETEMIR 100 UNIT/ML X5UNITS SQ SCH ×2 (09:03→20:07)
[2020-01-06] MEDS: Budesonide/Formoterol 160/4.5 1 PUFF INH IH SCH ×2 (10:05→22:39)
[2020-01-06] MEDS: *HR* OxyCODONE Immed Rel 5 MG TABLET PO PRN (20:06)
[2020-01-07] MEDS: ceFAZolin 2,000 MG in 0.9 % Sodium Chloride 100 ML IVPB SCH ×3 (00:31→16:36)
[2020-01-07] MEDS: *HR* Heparin 5,000 UNIT/ML VIAL SQ SCH ×3 (05:48→21:41)
[2020-01-07] MEDS: Aspirin Enteric Coated 81 MG Tablet PO SCH (09:01)
[2020-01-07] MEDS: Famotidine 20 MG TABLET PO SCH ×2 (09:02→21:41)
[2020-01-07] MEDS: Ascorbic Acid 500 MG TABLET PO SCH ×2 (09:02→16:37)
[2020-01-07] MEDS: lamoTRIgine 100 MG TABLET PO SCH (09:02)
[2020-01-07] MEDS: Multivit/Ca/Min/Fe/FA 1 TAB TABLET PO SCH (09:02)
[2020-01-07] MEDS: Nicotine 21 MG PATCH.TD24 TD SCH (09:02)
[2020-01-07] MEDS: Cholecalciferol (D-3) 1,000 UNIT (25MCG) TABLET PO SCH (09:02)
[2020-01-07] MEDS: Furosemide 40 MG TABLET PO SCH ×2 (09:03→16:37)
[2020-01-07] MEDS: Lactulose Oral Soln 20 GM/30 ML UDC PO SCH ×4 (09:03→21:59)
[2020-01-07] MEDS: Insulin LISPRO 300 UNITS/3 ML VIAL SQ SCH ×4 (09:03→21:44)
[2020-01-07] MEDS: Lisinopril 20 MG TABLET PO SCH (09:04)
[2020-01-07] MEDS: Budesonide/Formoterol 160/4.5 1 PUFF INH IH SCH ×2 (09:23→21:05)
[2020-01-07] MEDS: Insulin DETEMIR 100 UNIT/ML X5UNITS SQ SCH ×2 (12:19→21:41)
[2020-01-08] MEDS: ceFAZolin 2,000 MG in 0.9 % Sodium Chloride 100 ML IVPB SCH ×3 (00:32→17:09)
[2020-01-08 04:56] LABS: Hematocrit 27.9 % (37.5-50.1); Hemoglobin 8.6 g/dL (12.9-16.9); Mean Corpuscular HGB Conc 30.8 g/dL (31.6-35.5); Mean Corpuscular Volume 97.2 fL (83.0-100.0); Mean Platelet Volume 10.2 fL (9.4-12.4); Platelet Count 115 K/mcL (140-400); Red Blood Count 2.87 M/mcL (4.19-5.50); Red Cell Distribution Width 23.8 % (11.5-14.5); White Blood Count 7.2 K/mcL (4.3-11.1)
[2020-01-08] MEDS: *HR* Heparin 5,000 UNIT/ML VIAL SQ SCH ×3 (06:24→21:56)
[2020-01-08 06:49] LABS: BUN/Creatinine Ratio 10 (6-26); Blood Urea Nitrogen 8 mg/dL (8-23); Calcium 8.4 mg/dL (8.6-10.3); Carbon Dioxide 28 mEq/L (23-29); Chloride 105 mEq/L (98-107); Glucose 81 mg/dL (70-105); Osmolality,Calculated 285 (280-300); Potassium 4.1 mEq/L (3.5-5.1); Sodium 139 mEq/L (136-145); eGFR For African Americans > 60 (> 60); eGFR For Non-African Americans > 60 (> 60)
[2020-01-08] MEDS: Insulin LISPRO 300 UNITS/3 ML VIAL SQ SCH ×4 (08:39→21:36)
[2020-01-08] MEDS: Budesonide/Formoterol 160/4.5 1 PUFF INH IH SCH ×2 (09:33→22:16)
[2020-01-08] MEDS: Nicotine 21 MG PATCH.TD24 TD SCH (10:12)
[2020-01-08] MEDS: Aspirin Enteric Coated 81 MG Tablet PO SCH (10:13)
[2020-01-08] MEDS: lamoTRIgine 100 MG TABLET PO SCH (10:13)
[2020-01-08] MEDS: Ascorbic Acid 500 MG TABLET PO SCH ×2 (10:14→17:09)
[2020-01-08] MEDS: Multivit/Ca/Min/Fe/FA 1 TAB TABLET PO SCH (10:14)
[2020-01-08] MEDS: Furosemide 40 MG TABLET PO SCH ×2 (10:14→17:09)
[2020-01-08] MEDS: Famotidine 20 MG TABLET PO SCH ×2 (10:14→21:56)
[2020-01-08] MEDS: Lisinopril 20 MG TABLET PO SCH (10:14)
[2020-01-08] MEDS: Cholecalciferol (D-3) 1,000 UNIT (25MCG) TABLET PO SCH (10:14)
[2020-01-08] MEDS: Lactulose Oral Soln 20 GM/30 ML UDC PO SCH ×3 (10:18→22:00)
[2020-01-08] MEDS: Insulin DETEMIR 100 UNIT/ML X5UNITS SQ SCH ×2 (10:19→21:56)
[2020-01-09] MEDS: ceFAZolin 2,000 MG in 0.9 % Sodium Chloride 100 ML IVPB SCH ×3 (00:13→17:00)
[2020-01-09] MEDS: *HR* Heparin 5,000 UNIT/ML VIAL SQ SCH ×3 (06:06→20:11)
[2020-01-09] MEDS: Insulin LISPRO 300 UNITS/3 ML VIAL SQ SCH ×4 (08:07→20:06)
[2020-01-09] MEDS: lamoTRIgine 100 MG TABLET PO SCH (08:13)
[2020-01-09] MEDS: Cholecalciferol (D-3) 1,000 UNIT (25MCG) TABLET PO SCH (08:13)
[2020-01-09] MEDS: Famotidine 20 MG TABLET PO SCH ×2 (08:13→20:12)
[2020-01-09] MEDS: Ascorbic Acid 500 MG TABLET PO SCH ×2 (08:13→17:00)
[2020-01-09] MEDS: Multivit/Ca/Min/Fe/FA 1 TAB TABLET PO SCH (08:13)
[2020-01-09] MEDS: Nicotine 21 MG PATCH.TD24 TD SCH (08:13)
[2020-01-09] MEDS: Furosemide 40 MG TABLET PO SCH ×2 (08:14→17:00)
[2020-01-09] MEDS: Aspirin Enteric Coated 81 MG Tablet PO SCH (08:14)
[2020-01-09] MEDS: Lisinopril 20 MG TABLET PO SCH (08:17)
[2020-01-09] MEDS: Insulin DETEMIR 100 UNIT/ML X5UNITS SQ SCH ×2 (08:18→19:58)
[2020-01-09] MEDS: Lactulose Oral Soln 20 GM/30 ML UDC PO SCH ×3 (08:28→20:11)
[2020-01-09] MEDS: Budesonide/Formoterol 160/4.5 1 PUFF INH IH SCH ×2 (10:09→22:12)
[2020-01-09] MEDS: *HR* OxyCODONE Immed Rel 5 MG TABLET PO PRN (15:11)
[2020-01-10] MEDS: ceFAZolin 2,000 MG in 0.9 % Sodium Chloride 100 ML IVPB SCH ×3 (00:05→17:24)
[2020-01-10] MEDS: *HR* Heparin 5,000 UNIT/ML VIAL SQ SCH ×3 (05:29→20:45)
[2020-01-10] MEDS: Insulin LISPRO 300 UNITS/3 ML VIAL SQ SCH ×4 (07:59→20:39)
[2020-01-10] MEDS: lamoTRIgine 100 MG TABLET PO SCH (09:15)
[2020-01-10] MEDS: Famotidine 20 MG TABLET PO SCH ×2 (09:15→20:44)
[2020-01-10] MEDS: Aspirin Enteric Coated 81 MG Tablet PO SCH (09:15)
[2020-01-10] MEDS: Furosemide 40 MG TABLET PO SCH ×2 (09:15→15:15)
[2020-01-10] MEDS: Nicotine 21 MG PATCH.TD24 TD SCH (09:15)
[2020-01-10] MEDS: Ascorbic Acid 500 MG TABLET PO SCH ×2 (09:16→15:14)
[2020-01-10] MEDS: Cholecalciferol (D-3) 1,000 UNIT (25MCG) TABLET PO SCH (09:16)
[2020-01-10] MEDS: Multivit/Ca/Min/Fe/FA 1 TAB TABLET PO SCH (09:16)
[2020-01-10] MEDS: Lisinopril 20 MG TABLET PO SCH (09:16)
[2020-01-10] MEDS: Lactulose Oral Soln 20 GM/30 ML UDC PO SCH ×4 (09:16→20:45)
[2020-01-10] MEDS: Insulin DETEMIR 100 UNIT/ML X5UNITS SQ SCH ×2 (09:34→20:45)
[2020-01-10] MEDS: Budesonide/Formoterol 160/4.5 1 PUFF INH IH SCH ×2 (10:05→22:13)
[2020-01-11] MEDS: ceFAZolin 2,000 MG in 0.9 % Sodium Chloride 100 ML IVPB SCH ×3 (00:27→16:47)
[2020-01-11] MEDS: *HR* Heparin 5,000 UNIT/ML VIAL SQ SCH ×3 (05:33→22:08)
[2020-01-11] MEDS: Insulin LISPRO 300 UNITS/3 ML VIAL SQ SCH ×4 (07:48→20:54)
[2020-01-11] MEDS: Insulin DETEMIR 100 UNIT/ML X5UNITS SQ SCH ×2 (08:36→20:53)
[2020-01-11] MEDS: Furosemide 40 MG TABLET PO SCH ×2 (08:40→16:58)
[2020-01-11] MEDS: Ascorbic Acid 500 MG TABLET PO SCH ×2 (08:40→16:48)
[2020-01-11] MEDS: Aspirin Enteric Coated 81 MG Tablet PO SCH (08:41)
[2020-01-11] MEDS: lamoTRIgine 100 MG TABLET PO SCH (08:43)
[2020-01-11] MEDS: Famotidine 20 MG TABLET PO SCH ×2 (08:44→20:53)
[2020-01-11] MEDS: Multivit/Ca/Min/Fe/FA 1 TAB TABLET PO SCH (08:45)
[2020-01-11] MEDS: Lisinopril 20 MG TABLET PO SCH (08:46)
[2020-01-11] MEDS: Cholecalciferol (D-3) 1,000 UNIT (25MCG) TABLET PO SCH (08:46)
[2020-01-11] MEDS: Lactulose Oral Soln 20 GM/30 ML UDC PO SCH ×3 (08:58→20:54)
[2020-01-11] MEDS: Nicotine 21 MG PATCH.TD24 TD SCH (08:59)
[2020-01-11] MEDS: *HR* OxyCODONE Immed Rel 5 MG TABLET PO PRN (10:32)
[2020-01-11] MEDS: Budesonide/Formoterol 160/4.5 1 PUFF INH IH SCH ×2 (10:37→22:25)
[2020-01-12] MEDS: ceFAZolin 2,000 MG in 0.9 % Sodium Chloride 100 ML IVPB SCH ×3 (00:13→16:45)
[2020-01-12] MEDS: *HR* Heparin 5,000 UNIT/ML VIAL SQ SCH ×3 (05:35→21:33)
[2020-01-12] MEDS: Insulin LISPRO 300 UNITS/3 ML VIAL SQ SCH ×4 (08:53→21:23)
[2020-01-12] MEDS: Nicotine 21 MG PATCH.TD24 TD SCH (08:53)
[2020-01-12] MEDS: Cholecalciferol (D-3) 1,000 UNIT (25MCG) TABLET PO SCH (08:54)
[2020-01-12] MEDS: Ascorbic Acid 500 MG TABLET PO SCH ×2 (08:54→16:45)
[2020-01-12] MEDS: Famotidine 20 MG TABLET PO SCH ×2 (08:54→21:33)
[2020-01-12] MEDS: Multivit/Ca/Min/Fe/FA 1 TAB TABLET PO SCH (08:54)
[2020-01-12] MEDS: Lactulose Oral Soln 20 GM/30 ML UDC PO SCH ×3 (08:54→21:24)
[2020-01-12] MEDS: Aspirin Enteric Coated 81 MG Tablet PO SCH (08:54)
[2020-01-12] MEDS: lamoTRIgine 100 MG TABLET PO SCH (08:54)
[2020-01-12] MEDS: Lisinopril 20 MG TABLET PO SCH (08:55)
[2020-01-12] MEDS: Furosemide 40 MG TABLET PO SCH ×2 (08:55→16:45)
[2020-01-12] MEDS: Insulin DETEMIR 100 UNIT/ML X5UNITS SQ SCH ×2 (09:00→21:33)
[2020-01-12] MEDS: *HR* OxyCODONE Immed Rel 5 MG TABLET PO PRN ×2 (09:18→21:38)
[2020-01-12] MEDS: Budesonide/Formoterol 160/4.5 1 PUFF INH IH SCH ×2 (10:01→21:35)
[2020-01-13] MEDS: ceFAZolin 2,000 MG in 0.9 % Sodium Chloride 100 ML IVPB SCH ×3 (00:40→17:23)
[2020-01-13] MEDS: *HR* Heparin 5,000 UNIT/ML VIAL SQ SCH ×3 (06:22→22:50)
[2020-01-13 06:33] LABS: Hematocrit 31.9 % (37.5-50.1); Hemoglobin 9.8 g/dL (12.9-16.9); Mean Corpuscular HGB Conc 30.7 g/dL (31.6-35.5); Mean Corpuscular Hemoglobin 30.5 pg (28.0-33.3); Mean Corpuscular Volume 99.4 fL (83.0-100.0); Mean Platelet Volume 10.7 fL (9.4-12.4); Platelet Count 160 K/mcL (140-400); Red Blood Count 3.21 M/mcL (4.19-5.50); Red Cell Distribution Width 23.4 % (11.5-14.5); White Blood Count 8.6 K/mcL (4.3-11.1)
[2020-01-13 07:38] LABS: BUN/Creatinine Ratio 12 (6-26); Blood Urea Nitrogen 11 mg/dL (8-23); Calcium 8.8 mg/dL (8.6-10.3); Carbon Dioxide 24 mEq/L (23-29); Chloride 103 mEq/L (98-107); Glucose 121 mg/dL (70-105); Osmolality,Calculated 287 (280-300); Potassium 4.2 mEq/L (3.5-5.1); Sodium 138 mEq/L (136-145); eGFR For African Americans > 60 (> 60); eGFR For Non-African Americans > 60 (> 60)
[2020-01-13] MEDS: Insulin DETEMIR 100 UNIT/ML X5UNITS SQ SCH ×2 (08:00→20:43)
[2020-01-13] MEDS: Budesonide/Formoterol 160/4.5 1 PUFF INH IH SCH ×2 (09:12→22:08)
[2020-01-13 09:13] LABS: C-Reactive Protein 62 mg/L (Less than 10)
[2020-01-13] MEDS: Insulin LISPRO 300 UNITS/3 ML VIAL SQ SCH ×4 (09:44→20:43)
[2020-01-13] MEDS: Furosemide 40 MG TABLET PO SCH ×3 (09:46→17:33)
[2020-01-13] MEDS: Aspirin Enteric Coated 81 MG Tablet PO SCH (09:46)
[2020-01-13] MEDS: Nicotine 21 MG PATCH.TD24 TD SCH (09:46)
[2020-01-13] MEDS: Multivit/Ca/Min/Fe/FA 1 TAB TABLET PO SCH (09:46)
[2020-01-13] MEDS: Famotidine 20 MG TABLET PO SCH ×2 (09:46→20:41)
[2020-01-13] MEDS: lamoTRIgine 100 MG TABLET PO SCH (09:47)
[2020-01-13] MEDS: Lactulose Oral Soln 20 GM/30 ML UDC PO SCH ×3 (09:47→20:43)
[2020-01-13] MEDS: Ascorbic Acid 500 MG TABLET PO SCH ×2 (09:47→17:24)
[2020-01-13] MEDS: Cholecalciferol (D-3) 1,000 UNIT (25MCG) TABLET PO SCH (09:47)
[2020-01-13] MEDS: Lisinopril 20 MG TABLET PO SCH (09:54)
[2020-01-13] MEDS: Nystatin POWDER 30 GM BOTTLE TP SCH ×2 (17:23→20:42)
[2020-01-13] MEDS: Nystatin Cream 15 GM TUBE TP SCH ×2 (17:23→20:43)
[2020-01-13] MEDS: *HR* OxyCODONE Immed Rel 5 MG TABLET PO PRN (20:42)
[2020-01-14] MEDS: ceFAZolin 2,000 MG in 0.9 % Sodium Chloride 100 ML IVPB SCH ×3 (00:11→16:01)
[2020-01-14] MEDS: *HR* Heparin 5,000 UNIT/ML VIAL SQ SCH ×3 (06:54→20:31)
[2020-01-14] MEDS: Insulin LISPRO 300 UNITS/3 ML VIAL SQ SCH ×4 (08:09→20:05)
[2020-01-14] MEDS: lamoTRIgine 100 MG TABLET PO SCH (08:27)
[2020-01-14] MEDS: Aspirin Enteric Coated 81 MG Tablet PO SCH (08:27)
[2020-01-14] MEDS: Famotidine 20 MG TABLET PO SCH ×2 (08:27→20:31)
[2020-01-14] MEDS: Cholecalciferol (D-3) 1,000 UNIT (25MCG) TABLET PO SCH (08:27)
[2020-01-14] MEDS: Furosemide 40 MG TABLET PO SCH ×2 (08:28→16:02)
[2020-01-14] MEDS: Nicotine 21 MG PATCH.TD24 TD SCH (08:28)
[2020-01-14] MEDS: Ascorbic Acid 500 MG TABLET PO SCH ×2 (08:28→16:02)
[2020-01-14] MEDS: Lisinopril 20 MG TABLET PO SCH (08:28)
[2020-01-14] MEDS: Multivit/Ca/Min/Fe/FA 1 TAB TABLET PO SCH (08:28)
[2020-01-14] MEDS: Lactulose Oral Soln 20 GM/30 ML UDC PO SCH ×3 (08:29→20:31)
[2020-01-14] MEDS: Nystatin Cream 15 GM TUBE TP SCH ×2 (08:29→20:32)
[2020-01-14] MEDS: Nystatin POWDER 30 GM BOTTLE TP SCH ×3 (08:30→20:31)
[2020-01-14] MEDS: Insulin DETEMIR 100 UNIT/ML X5UNITS SQ SCH ×2 (08:38→20:31)
[2020-01-14] MEDS: Budesonide/Formoterol 160/4.5 1 PUFF INH IH SCH ×2 (10:52→21:36)
[2020-01-14] MEDS: *HR* OxyCODONE Immed Rel 5 MG TABLET PO PRN (20:30)
[2020-01-14] MEDS: Triamcinolone Acet 0.1% CRM 15 GM TUBE TP SCH (20:30)
[2020-01-15] MEDS: ceFAZolin 2,000 MG in 0.9 % Sodium Chloride 100 ML IVPB SCH ×4 (00:40→23:33)
[2020-01-15] MEDS: *HR* Heparin 5,000 UNIT/ML VIAL SQ SCH ×3 (06:26→23:33)
[2020-01-15] MEDS: Insulin LISPRO 300 UNITS/3 ML VIAL SQ SCH ×4 (08:16→20:07)
[2020-01-15] MEDS: Nicotine 21 MG PATCH.TD24 TD SCH (08:25)
[2020-01-15] MEDS: Famotidine 20 MG TABLET PO SCH ×2 (08:26→20:05)
[2020-01-15] MEDS: lamoTRIgine 100 MG TABLET PO SCH (08:26)
[2020-01-15] MEDS: Aspirin Enteric Coated 81 MG Tablet PO SCH (08:26)
[2020-01-15] MEDS: Lisinopril 20 MG TABLET PO SCH (08:26)
[2020-01-15] MEDS: Cholecalciferol (D-3) 1,000 UNIT (25MCG) TABLET PO SCH (08:26)
[2020-01-15] MEDS: Ascorbic Acid 500 MG TABLET PO SCH ×2 (08:26→17:24)
[2020-01-15] MEDS: Furosemide 40 MG TABLET PO SCH ×2 (08:26→17:24)
[2020-01-15] MEDS: Multivit/Ca/Min/Fe/FA 1 TAB TABLET PO SCH (08:27)
[2020-01-15] MEDS: Triamcinolone Acet 0.1% CRM 15 GM TUBE TP SCH ×2 (08:27→20:07)
[2020-01-15] MEDS: Lactulose Oral Soln 20 GM/30 ML UDC PO SCH ×3 (08:27→20:07)
[2020-01-15] MEDS: Insulin DETEMIR 100 UNIT/ML X5UNITS SQ SCH ×2 (08:28→20:05)
[2020-01-15] MEDS: Nystatin Cream 15 GM TUBE TP SCH ×2 (08:28→20:06)
[2020-01-15] MEDS: Nystatin POWDER 30 GM BOTTLE TP SCH ×3 (08:28→20:07)
[2020-01-15] MEDS: Budesonide/Formoterol 160/4.5 1 PUFF INH IH SCH ×2 (10:26→22:28)
[2020-01-16] MEDS: *HR* OxyCODONE Immed Rel 5 MG TABLET PO PRN (01:46)
[2020-01-16] MEDS: *HR* LORazepam 2 MG/ML VIAL IM PRN (01:59)
[2020-01-16] MEDS: *HR* Heparin 5,000 UNIT/ML VIAL SQ SCH ×3 (06:01→22:58)
[2020-01-16 07:12] LABS: Basophils % 0.4 %; Eosinophils # 0.7 K/mcL (0.0-0.6); Eosinophils % 6.2 %; Hematocrit 34.1 % (37.5-50.1); Hemoglobin 10.7 g/dL (12.9-16.9); Immature Granulocytes % 0.5 % (0-4); Lymphocytes # 3.1 K/mcL (0.6-4.6); Lymphocytes % 27.3 %; Mean Corpuscular HGB Conc 31.4 g/dL (31.6-35.5); Mean Corpuscular Hemoglobin 30.7 pg (28.0-33.3); Mean Platelet Volume 10.3 fL (9.4-12.4); Monocytes # 1.4 K/mcL (0.0-1.3); Monocytes % 12.2 %; Platelet Count 221 K/mcL (140-400); Red Blood Count 3.48 M/mcL (4.19-5.50); Segmented Neutrophils % 53.4 %; White Blood Count 11.3 K/mcL (4.3-11.1)
[2020-01-16 07:14] LABS: Basophils # 0.1 K/mcL (0.0-0.2)
[2020-01-16 07:25] LABS: BUN/Creatinine Ratio 9 (6-26); Blood Urea Nitrogen 11 mg/dL (8-23); Calcium 9.2 mg/dL (8.6-10.3); Carbon Dioxide 31 mEq/L (23-29); Chloride 102 mEq/L (98-107); Glucose 114 mg/dL (70-105); Osmolality,Calculated 294 (280-300); Potassium 3.6 mEq/L (3.5-5.1); Sodium 142 mEq/L (136-145); eGFR For African Americans > 60 (> 60); eGFR For Non-African Americans > 60 (> 60)
[2020-01-16] MEDS: lamoTRIgine 100 MG TABLET PO SCH (07:58)
[2020-01-16] MEDS: Multivit/Ca/Min/Fe/FA 1 TAB TABLET PO SCH (07:58)
[2020-01-16] MEDS: Famotidine 20 MG TABLET PO SCH ×2 (07:58→22:58)
[2020-01-16] MEDS: Aspirin Enteric Coated 81 MG Tablet PO SCH (07:58)
[2020-01-16] MEDS: Cholecalciferol (D-3) 1,000 UNIT (25MCG) TABLET PO SCH (07:59)
[2020-01-16] MEDS: Nicotine 21 MG PATCH.TD24 TD SCH ×2 (07:59→14:30)
[2020-01-16] MEDS: Ascorbic Acid 500 MG TABLET PO SCH ×2 (07:59→17:23)
[2020-01-16] MEDS: ceFAZolin 2,000 MG in 0.9 % Sodium Chloride 100 ML IVPB SCH ×2 (08:00→17:24)
[2020-01-16] MEDS: Insulin LISPRO 300 UNITS/3 ML VIAL SQ SCH ×4 (08:01→21:46)
[2020-01-16] MEDS: Furosemide 40 MG TABLET PO SCH (08:01)
[2020-01-16] MEDS: Lactulose Oral Soln 20 GM/30 ML UDC PO SCH ×3 (08:02→22:57)
[2020-01-16] MEDS: Lisinopril 20 MG TABLET PO SCH (09:40)
[2020-01-16] MEDS: Budesonide/Formoterol 160/4.5 1 PUFF INH IH SCH ×2 (10:25→21:16)
[2020-01-16 13:45] LABS: ABG Base Excess 3 mEq/L (-2 to 3); ABG HCO3 28 mEq/L (21-27); ABG Oxygen Saturation 97 % (95-98); ABG PCO2 43 mmHg (35-45); ABG PH 7.42 pH Units (7.32-7.45); ABG PO2 93 mmHg (85-104); ABG TCO2 29 mEq/L (20-26)
[2020-01-16 14:09] LABS: C-Reactive Protein 39 mg/L (Less than 10)
[2020-01-16] MEDS: Nystatin Cream 15 GM TUBE TP SCH ×2 (14:30→22:58)
[2020-01-16] MEDS: Nystatin POWDER 30 GM BOTTLE TP SCH ×3 (14:31→22:58)
[2020-01-16] MEDS: Insulin DETEMIR 100 UNIT/ML X5UNITS SQ SCH ×2 (14:31→22:58)
[2020-01-16] MEDS: Triamcinolone Acet 0.1% CRM 15 GM TUBE TP SCH ×2 (14:31→22:57)
[2020-01-16 19:20] VITALS: BP 102/68
[2020-01-17] MEDS: ceFAZolin 2,000 MG in 0.9 % Sodium Chloride 100 ML IVPB SCH (00:10)
[2020-01-17] MEDS: *HR* Heparin 5,000 UNIT/ML VIAL SQ SCH (06:05)
[2020-01-17] MEDS ORDERED: Furosemide 40 MG TABLET PO SCH (09:00)
[2020-01-17] MEDS: Budesonide/Formoterol 160/4.5 1 PUFF INH IH SCH (09:24)
[2020-01-17] MEDS ORDERED: Haloperidol Lactate 5 MG/ML VIAL IM ONE (09:45)
== END 2020-01-17 11:43 | disposition short-term general hospital (02) | DRG 945 ==
LOC: INPPIK 15:49
PROVIDERS: ADMIT Family Medicine; ATTEND Family Medicine